=== PATIENT | female | born 1965 | race Caucasian/White ===

== ENCOUNTER 2019-06-11 12:53 | Emergency (ER) | payer MEDICAID ==
[~2019-06-11] VITALS: Ht 172.7 cm; Wt 64.7 kg
[2019-06-11 13:00] VITALS: BP 136/92
--- NOTE | 2019-06-11 13:13 | NUR ---
PT HERE FOR [facility]. STATES SHE WAS SUPPOSED TO BE SEEN BY [facility] TODAY BUT THEY DON'T TAKE HER INSURANCE AND REFUSED TO SEE HER.
[2019-06-11] MEDS ORDERED: LOSA25TA25 PO (13:14)
--- NOTE | 2019-06-11 13:48 | NUR ---
D\Patient/Caregiver given discharge instructions and they have confirmed that they understand the instructions. Patient ambulatory with steady gait.
== END 2019-06-11 13:52 | disposition home or self-care (01) ==
LOC: ED 13:46
DX: I10 Essential (primary) hypertension (principal); Z76.0 Encounter for issue of repeat prescription
CPT/HCPCS: 99283

== ENCOUNTER 2019-07-10 11:19 | Emergency (ER) | payer MEDICAID ==
[~2019-07-10] VITALS: Ht 172.7 cm; Wt 63.9 kg
[~2019-07-10 11:19] MED LIST: LOSA25TA25 PO
[2019-07-10 11:33] VITALS: BP 158/95
== END 2019-07-10 13:10 | disposition home or self-care (01) ==
LOC: ED 12:45
DX: M72.2 Plantar fascial fibromatosis (principal); M79.672 Pain in left foot; Z76.0 Encounter for issue of repeat prescription; I10 Essential (primary) hypertension
CPT/HCPCS: 99283